=== PATIENT | male | born 1980 | race Caucasian/White ===

== ENCOUNTER 2019-06-16 23:31 | Emergency (ER) | payer OTHER ==
[~2019-06-16] VITALS: Ht 167.6 cm; Wt 69.4 kg
[2019-06-16] MEDS ORDERED: LOSARTAN POTASS25 MG (23:50)
== END 2019-06-17 02:12 | disposition home or self-care (01) ==
LOC: ER 23:31
DX: R51 Headache (principal); I10 Essential (primary) hypertension